=== PATIENT | male | born 1935 | race Asian ===

== ENCOUNTER 2016-11-24 10:55 | Inpatient (IN) | payer OTHER ==
[~2016-11-24] VITALS: Ht 162.6 cm; Wt 59.4 kg
[2016-11-24 11:29] LABS: BASOPHIL % 0.5 % (0-2); PLATELET COUNT 231 x10^3mcL (130-400)
[2016-11-24 11:34] LABS: CALCIUM 8.2 mg/dL (8.5-10.1); CARBON DIOXIDE 29.2 mmol/L (21-32); CHLORIDE SERUM 99 mmol/L (98-107); CREATININE SERUM 0.8 mg/dL (0.7-1.3); GLUCOSE SERUM 128 mg/dL (74-106); POTASSIUM SERUM 3.9 mmol/L (3.5-5.1); SODIUM SERUM 135 mmol/L (136-145)
[2016-11-24] MEDS ORDERED: LOSARTAN POTASS50 M1 PO (11:36)
[2016-11-24] MEDS ORDERED: METFORMIN HCL500 MG PO (11:37)
[2016-11-24] MEDS ORDERED: EPZICOM1 TAB PO (11:37)
[2016-11-24] MEDS ORDERED: ZETIA10 M1 PO (11:37)
[2016-11-24] MEDS ORDERED: CELEBREX200 MG PO (11:38)
[2016-11-24] MEDS ORDERED: CLARITIN10 MG PO (11:38)
[2016-11-24] MEDS ORDERED: CLOBETASOL PROP0.05% TOP (11:38)
[2016-11-24 11:39] LABS: ALBUMIN 3.7 g/dL (3.4-5.0); ALKALINE PHOSPHATASE 83 U/L (46-116); ALT/SGPT 72 U/L (16-63); AST/SGOT 60 U/L (15-37); BILIRUBIN TOTAL 0.43 mg/dL (0.20-1.00); TOTAL PROTEIN, SERUM 7.1 g/dL (6.4-8.2)
[2016-11-24 13:43] VITALS: BP 151/81
[2016-11-24 15:41] LABS: T3 TOTAL 1.18 ng/mL
[2016-11-24 15:48] LABS: FREE T4 0.86 ng/dL (0.76-1.46); FREE THYROXINE INDEX 2.8 ug/dL (1.4-4.5)
[2016-11-24 16:38] LABS: microscopic required? NO
[2016-11-24 16:42] LABS: urine erythrocyte NEGATIVE (NEGATIVE)
[2016-11-24 16:58] LABS: AMPHETAMINE QUAL UR NONE DETECTED (NEG <=1000)
[2016-11-24 17:05] VITALS: BP 152/72
[2016-11-24 18:44] LABS: CHOLESTEROL/HDL RATIO 2.7
[2016-11-24 21:58] VITALS: BP 148/71
[2016-11-25] VITALS (14 sets, daily range): BP systolic 121–148; BP diastolic 55–71
[2016-11-25 07:15] LABS: CALCIUM 8.7 mg/dL (8.5-10.1); CHLORIDE SERUM 96 mmol/L (98-107); CREATININE SERUM 0.7 mg/dL (0.7-1.3); GLUCOSE SERUM 113 mg/dL (74-106); MAGNESIUM 1.6 mg/dL (1.8-2.4); PHOSPHOROUS 3.9 mg/dL (2.5-4.9); POTASSIUM SERUM 3.8 mmol/L (3.5-5.1); SODIUM SERUM 131 mmol/L (136-145)
[2016-11-25 07:38] LABS: BASOPHIL % 0.3 % (0-2); PLATELET COUNT 247 x10^3mcL (130-400); RED CELL DISTRIBUTION WIDTH 12.6 % (11.5-14.5)
[2016-11-25] MEDS ORDERED: ECO81 PO (17:17)
[2016-11-25] MEDS ORDERED: ATORVASTATIN CA40 M1 PO (17:18)
[2016-11-25] MEDS ORDERED: METOPROLOL TART25 M1 PO (17:20)
[2016-11-26 06:13] VITALS: BP 114/53
[2016-11-26 06:25] LABS: BASOPHIL % 0.4 % (0-2); PLATELET COUNT 216 x10^3mcL (130-400)
[2016-11-26 06:32] LABS: CALCIUM 8.2 mg/dL (8.5-10.1); CARBON DIOXIDE 25.8 mmol/L (21-32); CHLORIDE SERUM 99 mmol/L (98-107); CREATININE SERUM 0.7 mg/dL (0.7-1.3); GLUCOSE SERUM 98 mg/dL (74-106); PHOSPHOROUS 3.3 mg/dL (2.5-4.9); POTASSIUM SERUM 3.8 mmol/L (3.5-5.1); SODIUM SERUM 133 mmol/L (136-145)
[2016-11-26 09:25] VITALS: BP 110/59
== END 2016-11-26 10:32 | disposition short-term general hospital (02) | DRG 280 ==
LOC: ED 10:55 → DU 12:51
PROVIDERS: Emergency Medicine; Internal Medicine Interventional Cardiology; ADMIT Family Medicine
PROC: B2111ZZ Fluoroscopy of Multiple Coronary Arteries using Low Osmolar Contrast (ICD-10-PCS; 2016-11-25)
PROC: B2151ZZ Fluoroscopy of Left Heart using Low Osmolar Contrast (ICD-10-PCS; 2016-11-25)
PROC: 4A023N7 Measurement of Cardiac Sampling and Pressure, Left Heart, Percutaneous Approach (ICD-10-PCS; principal; 2016-11-25 14:00)
DX: I21.4 Non-ST elevation (NSTEMI) myocardial infarction (principal); I50.43 Acute on chronic combined systolic (congestive) and diastolic (congestive) heart failure; E87.1 Hypo-osmolality and hyponatremia; I25.10 Atherosclerotic heart disease of native coronary artery without angina pectoris; E11.65 Type 2 diabetes mellitus with hyperglycemia; E11.51 Type 2 diabetes mellitus with diabetic peripheral angiopathy without gangrene; I10 Essential (primary) hypertension; E83.51 Hypocalcemia; E78.00 Pure hypercholesterolemia, unspecified; R74.0 Nonspecific elevation of levels of transaminase and lactic acid dehydrogenase [LDH]; Z68.22 Body mass index [BMI] 22.0-22.9, adult; Z87.891 Personal history of nicotine dependence; Z79.84 Long term (current) use of oral hypoglycemic drugs
CPT/HCPCS: CLHCL; 82962; 83880; 84439; C1769; C1887; C1894; J1644; J2001; J2250; J3010; J3475; J3490; J7030; Q0092; Q9967